=== PATIENT | female | born 1940 | race Caucasian/White ===

== ENCOUNTER 2018-07-05 13:43 | Inpatient (IN) ==
[2018-07-05] MEDS ORDERED: ROCURONIUM 100 MG/10 ML VIAL IV STA (13:52)
[2018-07-05] MEDS ORDERED: NALOXONE 0.4 MG/ML VIAL ONE (13:53)
[2018-07-05] MEDS ORDERED: ETOMIDATE 20 MG/10 ML VIAL IV ONE (13:55)
[2018-07-05] MEDS ORDERED: MEROPENEM 1,000 MG in SODIUM CHLORIDE 0.9% 100 ML IV STA (13:58)
[2018-07-05] MEDS ORDERED: NOREPINEPHRINE 4 MG/4 ML VIAL IV ONE (14:04)
[2018-07-05 14:10] LABS: Basophils % 0.4 % (0.0-0.8); Eosinophils # 0.1 10*3/uL (0.0-0.87); Eosinophils % 5.1 % (0.00-10.9); Hematocrit 32.7 VOL% (35.7-47.0); Immature Granulocytes % 0.7 %; Immature Granulocytes Absolute 0.02 #; Lymphocytes # 1.2 10*3/uL (1.4-4.0); Lymphocytes % 43.1 % (21.3-54.2); Mean Corpuscular HGB Conc 28.4 GM/DL (32-36); Mean Corpuscular Hemoglobin 33 PG (27-34); Mean Corpuscular Volume 115.1 FL (87-102); Mean Platelet Volume 14.9 FL (9.6-12.0); Monocytes # 0.1 10*3/uL (0.11-0.8); Monocytes % 5.1 % (1.7-12.7); NRBC # 0.06 10*3/uL; Neutrophils # 1.3 10*3/uL (1.4-7.4); Neutrophils % 45.6 % (38.7-73.9); Platelet Count 71 T/CUMM (130-400); Red Blood Count 2.84 MC/CUMM (3.8-5.5); Red Cell Distribution Width 16.4 % (9.3-17.3); White Blood Count 2.8 T/CUMM (4-12)
[2018-07-05 14:11] LABS: Hemoglobin 9.3 GM/DL (12.0-16.0)
[2018-07-05 14:17] LABS: INR 1.2; PT Patient Result 12.7 SECS; Partial Thromboplastin Time 35.6 SECS (0-40)
[2018-07-05] MEDS ORDERED: LACTATED RINGERS 2,000 ML IV ONE (14:18)
[2018-07-05 14:24] LABS: Apearance,Urine Slightly Hazy (Clear); Bilirubin,Urine Negative (Negative); Blood, Urine Small mg/dL (Negative); Glucose,Urine (UA) Negative (Negative); Hyaline Casts,Urine 4 /LPF (0-3); Ketones,Urine Negative (Negative); Mucus,Urine Occasional /LPF (Occasional); Nitrite,Urine Negative (Negative); Protein,Urine Negative; RBC,Urine 1 /HPF (0-4); Urine Color Yellow (Yellow); Urine Specific Gravity 1.015 (1.001-1.035); Urine Urobilinogen < 2.0 EU/DL (0.2-1.0); WBC,Urine 2 /HPF (0-6)
[2018-07-05 14:29] LABS: ABG Base Excess -18.1 MMOL/L (-2.5-2.5); ABG HCO3 10.7 MMOL/L (20-26); ABG Oxygen Saturation 99.3 % (95-100); ABG PCO2 37.9 MM HG (35-48); ABG TCO2 10.8 MMOL/L (23-27)
[2018-07-05 14:30] LABS: Alanine Aminotransferase 32 U/L (13-56); Albumin 1.8 G/DL (3.4-5.0); Alkaline Phosphatase 139 U/L (45-117); Aspartate Amino Transferase 120 U/L (0-37); Blood Urea Nitrogen 42 MG/DL (7-18); Glucose 89 MG/DL (74-106); Osmolality,Calculated 288.4 MOS/KG (273-304); Potassium 3.4 MMOL/L (3.5-5.1); Sodium 140 MMOL/L (136-145)
[2018-07-05 14:30] LABS: ABG PH 7.071 (7.35-7.45)
[2018-07-05] MEDS ORDERED: SODIUM BICARBONATE 50 MEQ/50 ML VIAL IV STA (14:30)
[2018-07-05 14:31] LABS: Barbiturates Screen,Urine Negative (Negative); Benzodiazepines Screen,Urine Negative (Negative); Cannabinoid Screen,Urine Negative (Negative); Opiate Screen,Urine Positive (Negative); Phencyclidine Screen,Urine Negative (Negative)
[2018-07-05] MEDS ORDERED: SODIUM BICARBONATE 50 MEQ/50 ML SYRINGE IV ONE (14:31)
[2018-07-05 14:44] LABS: Lactic Acid 19.7 MMOL/L (0.4-2.0)
[2018-07-05] MEDS ORDERED: SODIUM CHLORIDE 0.9% 1,000 ML IV STA ×2 (14:51→15:35)
[2018-07-05] MEDS: PROPOFOL 1,000 MG/100 ML BOTTLE IV SCH (14:51)
[2018-07-05] MEDS: NOREPINEPHRINE 8 MG in SODIUM CHLORIDE 0.9% 242 ML IV PRN (15:01)
[2018-07-05 15:02] LABS: Band Neutrophils 3 % (0-10); Eosinophils 4 % (0-10); Lymphocytes 63 % (20-55); Myelocytes 1 %; Nucleated Red Blood Cells 1 (0-5); Platelet Estimate Decreased; Segmented Neutrophils 18 % (50-85)
[2018-07-05 15:04] LABS: Macrocytosis 1+; Polychromasia Slight; Total Cells Counted 100
[2018-07-05] MEDS ORDERED: PHENYLEPHRINE DRIP 40 MG/250 ML PREMIX IV PRN (16:10)
[2018-07-05] MEDS ORDERED: LEVOFLOXACIN INJ 750 MG in PREMIX 1 EACH IV SCH (16:30)
[2018-07-05] MEDS ORDERED: MORPHINE 4 MG/1 ML VIAL IV PRN (16:36)
[2018-07-05] MEDS ORDERED: ONDANSETRON 4 MG/2 ML VIAL IV PRN (16:36)
[2018-07-05] MEDS: HYDROCORTISONE 100 MG VIAL IV SCH ×2 (16:59→22:49)
[2018-07-05] MEDS ORDERED: ENOXAPARIN 80 MG/0.8 ML SYRINGE SUBCUT SCH (17:00)
[2018-07-05] MEDS: SODIUM CHLORIDE 0.9% 1,000 ML IV SCH (17:17)
[2018-07-05 18:36] VITALS: BP 130/64
[2018-07-05 19:31] LABS: ABG Base Excess -2.1 MMOL/L (-2.5-2.5); ABG HCO3 22.6 MMOL/L (20-26); ABG Oxygen Saturation 99.4 % (95-100); ABG PCO2 32.8 MM HG (35-48); ABG PH 7.428 (7.35-7.45); ABG TCO2 20.1 MMOL/L (23-27); Allen Test Positive; Pt O2 Delivery Device Ventilator
[2018-07-06] MEDS: SODIUM CHLORIDE 0.9% 1,000 ML IV SCH ×2 (01:05→01:32)
[2018-07-06] MEDS ORDERED: MEROPENEM 500 MG in SODIUM CHLORIDE 0.9% 100 ML IV SCH (02:00)
[2018-07-06] MEDS ORDERED: POTASSIUM CHLORIDE RIDER 10 MEQ in PREMIX 1 EACH IV PRN (03:05)
[2018-07-06] MEDS ORDERED: POTASSIUM CHLORIDE RIDER 20 MEQ in PREMIX 1 EACH IV PRN (03:05)
[2018-07-06] MEDS: PROPOFOL 1,000 MG/100 ML BOTTLE IV SCH (03:38)
[2018-07-06 03:42] LABS: ABG HCO3 12.2 MMOL/L (20-26); ABG Oxygen Saturation 98.8 % (95-100); ABG PCO2 23.7 MM HG (35-48); ABG PH 7.241 (7.35-7.45); ABG TCO2 9.6 MMOL/L (23-27); Allen Test Positive; Pt O2 Delivery Device Ventilator
[2018-07-06 04:44] LABS: Basophils % 0.8 % (0.0-0.8); Eosinophils % 0.8 % (0.00-10.9); Hematocrit 27.9 VOL% (35.7-47.0); Immature Granulocytes % 0.8 %; Immature Granulocytes Absolute 0.01 #; Lymphocytes # 0.5 10*3/uL (1.4-4.0); Lymphocytes % 34.6 % (21.3-54.2); Mean Corpuscular HGB Conc 28.7 GM/DL (32-36); Mean Corpuscular Hemoglobin 32 PG (27-34); Monocytes # 0.1 10*3/uL (0.11-0.8); Monocytes % 5.4 % (1.7-12.7); NRBC # 0.07 10*3/uL; Neutrophils # 0.8 10*3/uL (1.4-7.4); Neutrophils % 57.6 % (38.7-73.9); Red Blood Count 2.47 MC/CUMM (3.8-5.5); Red Cell Distribution Width 16.6 % (9.3-17.3); White Blood Count 1.3 T/CUMM (4-12)
[2018-07-06 04:46] LABS: Platelet Count 50 T/CUMM (130-400)
[2018-07-06 04:57] LABS: Lactic Acid 14.9 MMOL/L (0.4-2.0)
[2018-07-06 05:03] LABS: Thyroid Stimulating Hormone 0.346 uIU/ml (0.358-3.74)
[2018-07-06] MEDS: NOREPINEPHRINE 8 MG in SODIUM CHLORIDE 0.9% 242 ML IV PRN (05:16)
[2018-07-06 05:21] LABS: Albumin 1.4 G/DL (3.4-5.0); Bilirubin,Total 1.1 MG/DL (0.2-1.0); Calcium 6.7 MG/DL (8.5-10.1); Potassium 4.7 MMOL/L (3.5-5.1); Total Protein 4.7 G/DL (6.4-8.3); Troponin I 0.693 NG/ML (0.00-0.045)
[2018-07-06] MEDS: HYDROCORTISONE 100 MG VIAL IV SCH (05:26)
[2018-07-06 05:39] LABS: Band Neutrophils 15 % (0-10); Eosinophils 1 % (0-10); Lymphocytes 33 % (20-55); Metamyelocytes 1 %; Myelocytes 7 %; Nucleated Red Blood Cells 2 (0-5); Platelet Estimate Decreased; Segmented Neutrophils 36 % (50-85); Total Cells Counted 100
[2018-07-06 05:40] LABS: Burr Cells Slight; Hypochromasia 1+; Macrocytosis Slight; Ovalocytes Slight
[2018-07-06] MEDS ORDERED: SODIUM BICARBONATE 50 MEQ/50 ML SYRINGE IV ONE ×2 (05:47→05:55)
[2018-07-06] MEDS ORDERED: DEXTROSE 50% 25 GM/50 ML SYRINGE IV PRN (05:52)
[2018-07-06] MEDS ORDERED: DEXTROSE 50% 25 GM/50 ML SYRINGE IV ONE (05:56)
[2018-07-06] MEDS ORDERED: NOREPINEPHRINE 16 MG in SODIUM CHLORIDE 0.9% 234 ML IV PRN (08:00)
[2018-07-06] MEDS ORDERED: VANCOMYCIN INJ 1,500 MG in SODIUM CHLORIDE 0.9% 500 ML IV ONE (08:00)
[2018-07-06] MEDS ORDERED: SODIUM BICARB INJ 100 MEQ in SODIUM CHLORIDE 0.45% 1,000 ML IV SCH (08:00)
== END 2018-07-06 09:14 | disposition expired | DRG 871 ==
LOC: EDUNIT# → EDBD → N.ED 13:43 → N.EDINP 15:16 → N.ICU 15:41
PROVIDERS: ADMIT Internal Medicine; ATTEND Internal Medicine